=== PATIENT | female | born 1990 | race Caucasian/White ===

== ENCOUNTER 2020-10-08 16:52 | Emergency (ER) | payer BC ==
[~2020-10-08] VITALS: Ht 162.6 cm; Wt 70.3 kg
--- NOTE | 2020-10-08 17:23 | NUR ---
BIBS FROM HOME TO ER BED 5. AAOX4. NOT IN RESP DISTRESS. AMBULATORY. 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 PT DESCRIBES PAIN IF "MY ARM IS SLEEPING". ROM IS INTACT. NO NEURO DEFICIT NOTED. MD WAS AT THE BEDSIDE FOR EVAL. ORDERS RECEIVED, NOTED AND CARRIED OUT. URINE COLLECTED AND SENT TO LAB.
[2020-10-08] MEDS ORDERED: GABA300C PO (18:14)
--- NOTE | 2020-10-08 18:26 | NUR ---
Patient discharged to home in stable condition. Written and verbal after care instructions given. Patient verbalizes understanding of instruction. Pt ambulatory with a steady gait
[2020-10-08 18:28] VITALS: BP 123/82
== END 2020-10-08 18:28 | disposition home or self-care (01) ==
LOC: ER 16:52
DX: R20.2 Paresthesia of skin (principal)
CPT/HCPCS: 70450-TC; 84703-TC